=== PATIENT | male | born 1970 | race Hispanic/Latino ===

== ENCOUNTER 2017-11-09 12:55 | Outpatient (CLI) | payer MEDICARE ==
--- NOTE | 2017-11-09 13:25 | XRay Report ---
Left foot 3 views History: Pain. Findings: There are no fractures or other acute findings. Bone mineralization is normal. No significant soft tissue abnormalities. Impression: Normal study.
== END 2017-11-09 12:56 | disposition home or self-care (01) ==
LOC: SPVIMAG 12:55
PROVIDERS: ATTEND Orthopaedic Surgery Sports Medicine
DX: M79.672 Pain in left foot (principal)